=== PATIENT | male | born 1985 | race Caucasian/White ===

== ENCOUNTER 2017-06-14 09:23 | Emergency (ER) | payer OTHER ==
[2017-06-14 09:33] VITALS: TEMP 98.1
[2017-06-14] MEDS ORDERED: ONDANSETRON 4 MG/2 ML VIAL IVP ONE (09:44)
[2017-06-14] MEDS ORDERED: KETOROLAC 15 MG/1 ML SDV IVP ONE (09:44)
[2017-06-14] MEDS ORDERED: NS 1,000 ML IV ONE (09:44)
--- NOTE | 2017-06-14 10:07 | EDPHY ---
General Narrative: CHIEF COMPLAINT: Right flank and back pain HISTORY OF PRESENT ILLNESS: Patient complains of sudden onset of pain in the right low back and flank. This started approximately 2 hours ago. Severe pain. Radiates into the right abdomen and groin. No testicular pain. Nausea but no vomiting. No fever chills. No chest pain shortness of breath. No other associated complaints or modifying factors. History of kidney stone with similar presentation. Does not recall the urologist that he saw. REVIEW OF SYSTEMS: Ten systems reviewed and are negative unless otherwise noted in the HPI PCP: None SPECIALISTS: Does not recall the urologist he has seen in the past PAST MEDICAL HISTORY: None PAST SURGICAL HISTORY: None SOCIAL HISTORY: Nonsmoker. Does endorse alcohol use. No illicit substance use FAMILY HISTORY: Noncontributory EXAMINATION General Appearance: Alert, no distress, diaphoretic Head: normocephalic, atraumatic Eyes: Pupils equal and round, no conjunctival pallor or injection ENT, Mouth: Mucous membranes moist. Uvula midline Neck: Normal inspection, supple, non-tender Respiratory: Lungs are clear to auscultation. No wheezing, rhonchi or crackles Cardiovascular: Regular rate and rhythm. No murmur Gastrointestinal: Abdomen is soft and nontender in the 4 quadrants. No distention. No tympany. No rigidity. There is moderate tenderness in the right CVA. Back: non-tender, no bony abnormalities Neurological: A&O, nonfocal, normal gait Skin: Warm and dry, no rash Extremities: Nontender, no pedal edema Psychiatric: Mood and affect normal DIFFERENTIAL DIAGNOSES: Including but not limited to renal colic, ureteral stone, hydronephrosis, pyelonephritis, colitis, diverticulitis, cholecystitis, cholelithiasis MDM: 10:05 a.m. Acute right flank pain with history presentation that suggest renal colic. He is in obvious discomfort and mildly diaphoretic. But his vital signs are within normal limits. I have ordered pain medication, IV fluid, laboratory studies and CT scan without contrast for renal colic. These are pending at this time. 10:40 a.m. Notified by RN. Patient's pain is returning. I have ordered Dilaudid 0.5 mg. I have ordered Toradol 15 mg as he had 15 mg earlier and his creatinine is normal. 10:48 a.m. Notified by radiologist Dr. Chandra CT scan of the abdomen and pelvis findings discussed as documented. Significant for 4 mm stone in the right distal ureter near the UVJ. Moderate hydronephrosis 11:20 a.m. Patient re-evaluated. He is starting to feel much better. The urinalysis is pending. I updated him regarding the CT scan findings. 11:50 a.m. Patient re-evaluated. Urinalysis does not indicate infection. He says that his pain is improving. He expresses concern as the last time he had a kidney stone this pain lasted a week. He would like to go home but is hesitant to do so. We discussed a road test ambulation to see how he feels. 12:13 p.m. Patient ambulated well and wants to go home. I did offer admission to the hospital for pain control but he would like to go home. He is discharged in stable condition with prescriptions as documented. Follow up with Urology. ED precautions discussed. He is comfortable with this plan and discharged in stable condition - Diagnostics Imaging Results: Imaging Impressions Abdomen/Pelvis CT 06/14/17 10:04 Impression: 1. Moderate right hydroureteronephrosis secondary to a 4 mm obstructing calculus in the distal right ureterovesical junction. 2. No left nephrolithiasis or hydronephrosis. Attention: This CT examination is specifically designed to evaluate patients who are clinically suspected of having acute obstructive uropathy. This examination does not use radiographic contrast, and as such, provides only a limited evaluation of the abdomen, pelvis and retroperitoneum. If there is further clinical suspicion for pathological conditions other than obstructive uropathy, a complete CT evaluation of the abdomen and pelvis utilizing intravenous, oral, and rectal contrast should be considered. Findings and recommendations discussed with Emergency Department physician telecom assistant, Isaiah Ng, at 1048 hours, 06/14/2017. Final report concurs with initial preliminary interpretation. - History Smoking Status: Never smoked - Objective Vital Signs: Initial Vital Signs Temperature (C) 98.1 F 06/14/17 09:31 Heart Rate 71 06/14/17 09:31 Respiratory Rate 18 06/14/17 09:31 Blood Pressure 139/98 H 06/14/17 09:31 O2 Sat (%) 100 06/14/17 09:31 O2 Delivery Mode Room Air Allergies/Adverse Reactions: acetaminophen [From Vicodin] Allergy (Mild, Verified 06/14/17 09:30) Rash hydrocodone [From Vicodin] Allergy (Mild, Verified 06/14/17 09:30) Rash Home Medications: Medication Instructions Recorded Ondansetron Odt [Zofran Odt 4 mg 4 mg PO Q6 PRN #12 tab 06/14/17 (*)] Tamsulosin HCl [Flomax 0.4 MG (*)] 0.4 mg PO DAILY #2 cap 06/14/17 oxyCODONE HCL/ACETAMINOPHEN 1 each PO Q4-6PRN PRN #11 tablet 06/14/17 [Percocet 5-325 mg Tablet] Laboratory Results: Laboratory Results 06/14/17 09:45 06/14/17 09:45 06/14/17 06/14/17 06/14/17 11:10 09:45 09:45 WBC 9.26 10^3/uL 10^3/uL (3.80-9.50) RBC 5.54 10^6/uL 10^6/uL (4.40-6.38) Hgb 17.0 g/dL g/dL (13.7-17.5) Hct 46.4 % % (40.0-51.0) MCV 83.8 fL fL (81.5-99.8) MCH 30.7 pg pg (27.9-34.1) MCHC 36.6 g/dL g/dL (32.4-36.7) RDW 12.5 % % (11.5-15.2) Plt Count 300 10^3/uL 10^3/uL (150-400) MPV 10.1 fL fL (8.7-11.7) Neut % (Auto) 47.7 % % (39.3-74.2) Lymph % (Auto) 39.7 % % (15.0-45.0) [place] % (Auto) 7.8 % % (4.5-13.0) Eos % (Auto) 3.9 % % (0.6-7.6) Baso % (Auto) 0.4 % % (0.3-1.7) Nucleat RBC Rel Count 0.0 % % (0.0-0.2) Absolute Neuts (auto) 4.41 10^3/uL 10^3/uL (1.70-6.50) Absolute Lymphs (auto) 3.68 10^3/uL H 10^3/uL (1.00-3.00) Absolute Monos (auto) 0.72 10^3/uL 10^3/uL (0.30-0.80) Absolute Eos (auto) 0.36 10^3/uL 10^3/uL (0.03-0.40) Absolute Basos (auto) 0.04 10^3/uL 10^3/uL (0.02-0.10) Absolute Nucleated RBC 0.00 10^3/uL 10^3/uL (0-0.01) Immature Gran % 0.5 % % (0.0-1.1) Immature Gran # 0.05 10^3/uL 10^3/uL (0.00-0.10) Sodium 141 mEq/L mEq/L (134-144) Potassium 3.7 mEq/L mEq/L (3.5-5.2) Chloride 104 mEq/L mEq/L (97-110) Carbon Dioxide 16 mEq/l L mEq/l (22-31) Anion Gap 21 mEq/L H mEq/L (8-16) BUN 12 mg/dL mg/dL (7-23) Creatinine 1.1 mg/dL mg/dL (0.7-1.3) Estimated GFR > 60 Glucose 162 mg/dL H mg/dL (70-100) Calcium 10.5 mg/dL H mg/dL (8.5-10.4) Total Bilirubin 1.0 mg/dL mg/dL (0.1-1.4) Conjugated Bilirubin 0.3 mg/dL mg/dL (0.0-0.5) Unconjugated Bilirubin 0.7 mg/dL mg/dL (0.0-1.1) AST 33 IU/L IU/L (17-59) ALT 42 IU/L IU/L (21-72) Alkaline Phosphatase 93 IU/L IU/L (38-126) Total Protein 7.8 g/dL g/dL (6.3-8.2) Albumin 5.1 g/dL H g/dL (3.5-5.0) Lipase 141 IU/L IU/L (23-300) Urine Color YELLOW Urine Appearance HAZY Urine pH 7.0 (5.0-7.5) Ur Specific [place] 1.024 (1.002-1.030) Urine Protein 1+ H (NEGATIVE) Urine Ketones 2+ H (NEGATIVE) Urine Blood 1+ H (NEGATIVE) Urine Nitrate NEGATIVE (NEGATIVE) Urine Bilirubin NEGATIVE (NEGATIVE) Urine Urobilinogen 2.0 EU H EU (0.2-1.0) Ur Leukocyte Esterase NEGATIVE (NEGATIVE) Urine RBC 1-3 /hpf /hpf (0-3) Urine WBC 10-15 /hpf H /hpf (0-3) Ur Epithelial Cells TRACE /lpf /lpf (NONE-1+) Hyaline Casts 1-5 /lpf /lpf (0-1) Urine Mucus 1+ /lpf /lpf (NONE-1+) Urine Glucose NEGATIVE (NEGATIVE) Medications Given: Discontinued Medications Hydromorphone HCl (Dilaudid) 0.5 mg IVP EDNOW ONE Stop: 06/14/17 10:41 Last Admin: 06/14/17 10:43 Dose: 0.5 mg Sodium Chloride (Ns) 1,000 mls @ 0 mls/hr IV ONCE ONE PRN Reason: Wide Open Stop: 06/14/17 09:45 Last Admin: 06/14/17 09:48 Dose: 1,000 mls Ketorolac Tromethamine (Toradol) 15 mg IVP EDNOW ONE Stop: 06/14/17 09:45 Last Admin: 06/14/17 09:49 Dose: 15 mg Ketorolac Tromethamine (Toradol) 15 mg IVP EDNOW ONE Stop: 06/14/17 10:41 Last Admin: 06/14/17 10:44 Dose: 15 mg Morphine Sulfate (Morphine) 6 mg IVP EDNOW ONE Stop: 06/14/17 09:59 Last Admin: 06/14/17 10:01 Dose: 6 mg Ondansetron HCl (Zofran) 4 mg IVP EDNOW ONE Stop: 06/14/17 09:45 Last Admin: 06/14/17 09:48 Dose: 4 mg Departure - Departure Disposition: Home, Routine, Self-Care Clinical Impression: Ureteral stone with hydronephrosis, Renal colic on right side Condition: Good Instructions: Renal Colic (ED), Ureteral Stones (ED) Additional Instructions: 1. Increase fluid intake 2. medication as prescribed as needed 3. Follow up with Urology 4. Continue to strain urine 5. ED precautions for worsening pain, fever, chills Referrals: Thierno Galeano MD [Medical Doctor] - As per Instructions Stand Alone Forms: Work Excuse Prescriptions: Ondansetron Odt [Zofran Odt 4 mg (*)] 4 mg PO Q6 PRN #12 tab PRN Reason: Nausea/Vomiting, Use 1st oxyCODONE HCL/ACETAMINOPHEN [Percocet 5-325 mg Tablet] 1 each PO Q4-6PRN PRN # 11 tablet PRN Reason: Pain, Breakthrough Tamsulosin HCl [Flomax 0.4 MG (*)] 0.4 mg PO DAILY #2 cap
[2017-06-14 10:09] LABS: % IMMATURE GRANULYOCYTES 0.5 % (0.0-1.1); ABSOLUTE IMMATURE GRANULOCYTES 0.05 10^3/uL (0.00-0.10); ADD DIFF? NO; ADD MORPH? NO; ADD SCAN? NO; ATYPICAL LYMPHOCYTE FLAG 10 (0-99); FRAGMENT RBC FLAG 0 (0-99); HEMATOCRIT 46.4 % (40.0-51.0); LEFT SHIFT FLG 0 (0-99); LIPEMIA HEMOLYSIS FLAG 90 (0-99); MEAN CELL HEMOGLOBIN 30.7 pg (27.9-34.1); MEAN CELL HEMOGLOBIN CONCENTR. 36.6 g/dL (32.4-36.7); MEAN CELL VOLUME 83.8 fL (81.5-99.8); MEAN PLATELET VOLUME 10.1 fL (8.7-11.7); PLATELET CLUMPS FLAG 0 (0-99); PLATELET COUNT 300 10^3/uL (150-400); RED BLOOD CELL COUNT 5.54 10^6/uL (4.40-6.38); RED CELL DISTRIBUTION WIDTH 12.5 % (11.5-15.2)
[2017-06-14 10:17] LABS: ALANINE AMINOTRANSFERASE 42 IU/L (21-72); ALBUMIN 5.1 g/dL (3.5-5.0); ALKALINE PHOSPHATASE 93 IU/L (38-126); ANION GAP 21 mEq/L (8-16); ASPARTATE AMINOTRANSFERASE 33 IU/L (17-59); BILIRUBIN-CONJUGATED 0.3 mg/dL (0.0-0.5); BILIRUBIN-UNCONJUGATED 0.7 mg/dL (0.0-1.1); CALCIUM 10.5 mg/dL (8.5-10.4); CARBON DIOXIDE 16 mEq/l (22-31); CHLORIDE 104 mEq/L (97-110); CREATININE 1.1 mg/dL (0.7-1.3); GLOMERULAR FILTRATION RATE > 60; GLUCOSE 162 mg/dL (70-100); POTASSIUM 3.7 mEq/L (3.5-5.2); SODIUM 141 mEq/L (134-144); TOTAL PROTEIN 7.8 g/dL (6.3-8.2)
[2017-06-14] MEDS ORDERED: HYDROmorphONE/DILAUDID 1 MG/ML INJ IVP ONE (10:40)
[2017-06-14] MEDS ORDERED: KETOROLAC 30 MG/1 ML SDV IVP ONE (10:40)
[2017-06-14 11:34] LABS: COLOR YELLOW; LEUKOCYTE ESTERASE,URINE NEGATIVE (NEGATIVE); NITRITE,URINE NEGATIVE (NEGATIVE)
[2017-06-14 11:38] LABS: MUCUS 1+ /lpf (NONE-1+)
[2017-06-14 12:35] VITALS: BP 121/64; PULSE 74; RESP 16; O2SAT 99
== END 2017-06-14 12:34 | disposition home or self-care (01) ==
DX: N20.1 Calculus of ureter (principal); N13.30 Unspecified hydronephrosis; E86.9 Volume depletion, unspecified
CPT/HCPCS: 96374; J1170; J1885; J2405